=== PATIENT | female | born 1980 | race Caucasian/White ===

== ENCOUNTER 2019-04-15 02:10 | Emergency (ER) | payer OTHER ==
[~2019-04-15] VITALS: Ht 160 cm; Wt 46.4 kg
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
[2019-04-15 02:55] VITALS: BP 126/93
[2019-04-15] MEDS ORDERED: MAALOX/HYOSCYAMINE/LIDOCAINE 45 ML BTL ONE (02:59)
[2019-04-15] MEDS ORDERED: MAALOX/HYOSCYAMINE/LIDOCAINE 45 ML BTL PO ONE (03:00)
[2019-04-15] MEDS ORDERED: PROMETHAZINE 25 MG/ML, 1ML ONE (03:26)
[2019-04-15] MEDS ORDERED: FAMOTIDINE 20 MG/2 ML ONE (03:27)
[2019-04-15] MEDS ORDERED: DIAZEPAM 5 MG/ML, 2ML ONE (03:27)
[2019-04-15] MEDS ORDERED: DIAZEPAM 5 MG/ML, 2ML IV STA (03:38)
--- NOTE | 2019-04-15 03:49 | NUR ---
PT TO US
[2019-04-15 03:56] LABS: BASOPHILS # (AUTO) 0.05 x10^3/uL (0-0.1); BASOPHILS % (AUTO) 0 % (0-1); EOSINOPHILS # (AUTO) 0.01 x10^3/uL (0-0.4); EOSINOPHILS % (AUTO) 0 % (1-7); LYMPHOCYTES # (AUTO) 1.08 x10^3/uL (1-3.4); LYMPHOCYTES % (AUTO) 9 % (22-44); MD NO; MEAN CORPUSCULAR HEMOGLOBIN 30.9 pg (27.0-34.8); MEAN CORPUSCULAR VOLUME 90.8 fL (80-100); MEAN PLATELET VOLUME 7.9 fL (7.4-10.4); MONOCYTES # (AUTO) 0.31 x10^3/uL (0.2-0.8); MONOCYTES % (AUTO) 3 % (2-9); NEUTROPHILS # (AUTO) 10.89 x10^3/uL (1.8-6.8); NEUTROPHILS % (AUTO) 88 % (42-75); PLATELET COUNT 320 x10^3/uL (130-400); RED BLOOD COUNT 4.94 x10^6/uL (3.82-5.3); RED CELL DISTRIBUTION WIDTH 12.6 % (9.6-15.2)
[2019-04-15] MEDS ORDERED: FAMOTIDINE 20 MG/2 ML IV ONE (04:00)
[2019-04-15] MEDS ORDERED: PROMETHAZINE 25 MG/ML, 1ML IM ONE (04:00)
[2019-04-15] MEDS ORDERED: SODIUM CHLORIDE 0.9% 1,000ML IVBOLUS ONE (04:00)
[2019-04-15 04:07] LABS: ALANINE AMINOTRANSFERASE 18 U/L (12-78); ALBUMIN 4.5 g/dL (3.4-5.0); ANION GAP 9 mmol/L (5-15); CALCIUM 9.1 mg/dL (8.5-10.1); CHLORIDE 110 mmol/L (98-107); CREATININE 0.85 mg/dL (0.55-1.02)
[2019-04-15 04:10] LABS: ALKALINE PHOSPHATASE 52 U/L (45-117); BILIRUBIN,TOTAL 0.8 mg/dL (0.2-1.0)
[2019-04-15] MEDS ORDERED: SODIUM CHLORIDE FLUSH 10ML SYR IVF ONE (04:30)
--- NOTE | 2019-04-15 05:00 | NUR ---
all results back chart up for recheck
--- NOTE | 2019-04-15 05:17 | NUR ---
Patient/Caregiver given discharge instructions and they have confirmed that they understand the instructions. pt wheeled to dc desk by friend, piv dc prior to pt leaving facility
== END 2019-04-15 05:18 | disposition home or self-care (01) ==
LOC: ED 03:00
DX: K21.9 Gastro-esophageal reflux disease without esophagitis (principal); R10.12 Left upper quadrant pain; R11.2 Nausea with vomiting, unspecified
CPT/HCPCS: 36415; 76700; 80053; 83690; 85025; 96361; 96372; 96374; 96375; 99285; J2550; J3360; J3490; J7030

== ENCOUNTER 2019-10-07 17:07 | Emergency (ER) | payer OTHER ==
[~2019-10-07] VITALS: Ht 157.5 cm; Wt 48.7 kg
[2019-10-07 17:21] VITALS: BP 116/79
[2019-10-07] MEDS ORDERED: LIDOCAINE-MPF 1%, 5ML ONE (17:42)
[2019-10-07] MEDS ORDERED: LIDOCAINE-MPF 1%, 5ML INFIL ONE (18:00)
[2019-10-07] MEDS: HYDROmorphone 1 MG/ML, 1ML INJ IM ONE ×2 (19:00→19:32)
[2019-10-07] MEDS ORDERED: ONDANSETRON ODT 4 MG PO ONE (19:00)
[2019-10-07] MEDS ORDERED: ONDANSETRON ODT 4 MG ONE (19:25)
[2019-10-07] MEDS ORDERED: HYDROmorphone 1 MG/ML, 1ML INJ ONE (19:25)
[2019-10-07] MEDS ORDERED: HYDROcodone/APAP 5/325 TABLET ONE (19:41)
[2019-10-07] MEDS ORDERED: HYDROcodone/APAP 5/325 TABLET PO ONE (20:00)
--- NOTE | 2019-10-07 20:20 | NUR ---
BREAK RN: PT HAS BEEN UPDATED BY DR TATE. PT OKAYED TO HAVE ICE CHIPS
[2019-10-07] MEDS ORDERED: NEOSPORIN OINT. PKT 1 PACKET ONE (20:42)
== END 2019-10-07 21:41 | disposition home or self-care (01) ==
LOC: ED 19:13
DX: S91.115A Laceration without foreign body of left lesser toe(s) without damage to nail, initial encounter (principal); S63.635A Sprain of interphalangeal joint of left ring finger, initial encounter; M79.645 Pain in left finger(s); K21.9 Gastro-esophageal reflux disease without esophagitis; Z87.891 Personal history of nicotine dependence; X58.XXXA Exposure to other specified factors, initial encounter; Y93.39 Activity, other involving climbing, rappelling and jumping off; Y92.89 Other specified places as the place of occurrence of the external cause; Y99.8 Other external cause status
CPT/HCPCS: 64450; 73130; 99284; Q0162; J1170